=== PATIENT | female | born 1965 | race Caucasian/White ===

== ENCOUNTER → 2020-07-11 13:27 | Outpatient (BNVA) | payer OTHER, SELFPAY | PROVIDERS: PCP Internal Medicine; Referring Provider Internal Medicine; Visit Provider Surgery | DX: Z09 Encounter for follow-up examination after completed treatment for conditions other than malignant neoplasm (principal); Z87.2 Personal history of diseases of the skin and subcutaneous tissue | CPT/HCPCS: 99212; 99213 ==

== ENCOUNTER 2020-11-12 12:45 | Emergency (ER) | payer OTHER, SELFPAY ==
[2020-11-12 13:49] VITALS: BP 143/83; PULSE 75; RESP 16; TEMP 37.1; O2SAT 99; BMI 23.9
--- NOTE | 2020-11-12 14:22 | ED_ITS ---
HPI - Eye Problem General Chief complaint: Eye Problems Stated complaint: eyelid issue Time Seen by Provider: 11/12/20 13:52 Source: patient Mode of arrival: ambulatory Limitations: no limitations History of Present Illness HPI Narrative: 55-year-old female presenting to the ED with swelling to her left upper eyelid that started over the past 3 days worse today. Reports that she was seen at an urgent care clinic on Friday and given doxycycline and she felt like the area was less swollen than she went home and took the doxycycline as prescribed and applied warm compresses and woke up today with worsening swe lling. Reports she has not followed up with an cotton chopper although was given a referral. Denies any other symptom complaints or concerns at this time. chief complaint: other (Left upper eyelid swelling) Onset (ago): day(s) (3 days worse today) Onset description: gradual Duration: constant Location: left eye Eye Symptoms: other (Irritating/pressure sensation) Place: home Mechanism: none Severity: mild If Pain, Quality: aching Associated symptoms: none Treatments Prior to Arrival: other (Doxycycline and warm compresses see above) Related Data Home Medications Medication Instructions Recorded Confirmed diazepam 5 mg tablet 5 mg PO BID 07/11/20 fluticasone propionate 50 2 spray INTRANASAL DAILY 07/11/20 mcg/actuation nasal spray,suspension gabapentin 600 mg tablet 600 mg PO TID 07/11/20 ipratropium bromide 17 2 puff INHALATION QID 07/11/20 mcg/actuation HFA aerosol inhaler simvastatin 40 mg tablet 40 mg PO BEDTIME 07/11/20 Previous Rx's Medication Instructions Recorded doxycycline hyclate 100 mg tablet 100 mg PO BID #14 tab 11/10/20 erythromycin 1 appl OPHTHALMIC-LEFT DAILY #3.5 g 11/12/20 Allergies Allergy/AdvReac Type Severity Reaction Status Date / Time No Known Allergies Allergy Mild N/A Unverified 11/10/20 16:52 Review of Systems Review of Systems: Constitutional : No fevers, no chills, No changes in activity, No lethargy, No recent prior head injury, No agitation, No increased fussiness ENT/Mouth : No Ear Pain, No Nasal discharge/drainage Eyes: + eyelid left swelling, No Vision changes/blurry/decreased vision, No Eye Pain, No Swelling, No Redness, No Foreign Body, No Photophobia, no discharge, no drainage, no itching, no eyelid edema, no contact lens uses, no recent welding, no bleeding Cardiovascular : No Chest Pain, No SOB Respiratory : No Cough Gastrointestinal : No Nausea, No Vomiting, No abdominal Pain Genitourinary : No Dysuria, No Urinary Frequency, No Urinary Incontinence, No Urgency, No Flank Pain Musculoskeletal : No joint pain, No neck stiffness, No back pain/injury Skin : No lacerations Neuro : No unsteady gait, No Paresthesias, No Loss of Consciousness, No altered mental status, No dizziness, No Headache Denies past medical history of HIV, recent trauma, coagulopathy, recent spinal/ epidural procedure, new medication, URI symptoms, close contacts with similar symptoms, tick bite, or known CO2 exposure. Yes all other systems are reviewed and are negative [facility] Past Medical History Attestation statement: The following information was validated with the patient. Medical History History of cardiac pacemaker Social History Social History Smoking Status: Current every day smoker Use of substances other than those prescribed or required for medical reasons: Yes Substance Use Type: Marijuana Substance Use Frequency: Daily Advance Directives: No Advance Directives Information Provided: Yes Physical Exam Vital Signs: Vital Signs: Last Vital Signs Temp 98.8 F 11/12/20 13:49 Pulse 75 11/12/20 13:49 Resp 16 11/12/20 13:49 BP 143/83 H 11/12/20 13:49 Pulse Ox 99 11/12/20 13:49 Body Mass Index 23.9 vital signs have been reviewed as normal and appeared to be correct. Blood pressure normal. Heart rate normal. Respiration rate normal. Temperature normal. Oxygen saturation normal. Appearance: Alert. Oriented X3. No acute distress. Head: Normal external exam. Normocephalic. Atraumatic. Eyes: PERRLA. EOMI. Conjunctiva are normal. Cornea are normal. Funduscopic exam within normal limits. Sclera normal. Left upper eyelid with hordeolum noted no surrounding erythema/streaking/foreign bodies or drainage noted at this time. Left lower eyelid within normal limits. Right upper and lower eyelids within normal limits. No papilledema noted. Anterior chamber normal. No photophobia noted. ENT: EAC normal. TM's Normal. Pharynx normal. Uvula midline. Moist mucous membranes. Neck: Normal inspection. Neck supple. FROM. No adenopathy. Thyroid Normal. No meningeal signs. No neck mass noted. CVS: Normal heart rate and rhythm. Respiratory: No respiratory distress. Painless inspiration. Back: Full range of motion noted. Skin: Skin warm and dry. Normal skin color. Normal skin turgor. No rashes/lesions/lacerations noted. Extremities: Extremities exhibit normal range of motion. Extremities nontender. Neuro: Oriented X 3. No motor deficit. No sensory deficit. Reflexes normal. Course Course Course Narrative: Patient is now status post needle aspiration of left eye. Patient tolerated procedure well. No complications. Will DC home with antibiotics erythromycin topical and instructions to continue taking her doxycycline as prescribed and to follow up with Ophthalmology as scheduled. Patient understands agrees with this plan. MDM - Eye Problem Medical Records Attestation: I reviewed the patient's medical records. Discharge Plan Discharge Clinical Impression: Hordeolum externum (stye) Patient Disposition: Home, Self-Care Instructions: Gregory (ED) Prescriptions: New erythromycin 5 mg/gram (0.5 %) ointment 1 appl ophthalmic-Left DAILY Qty: 3.5 RF: 0 No Action doxycycline hyclate 100 mg tablet 100 mg PO BID Qty: 14 RF: 0 diazepam 5 mg tablet 5 mg PO BID RF: 0 simvastatin 40 mg tablet 40 mg PO BEDTIME RF: 0 gabapentin 600 mg tablet 600 mg PO TID RF: 0 fluticasone propionate 50 mcg/actuation spray,suspension 2 spray intranasal DAILY RF: 0 Atrovent HFA 17 mcg/actuation HFA aerosol inhaler 2 puff inhalation QID RF: 0 Referrals: Federico Barragan [Physician] - 2 days Print Language: Turkish
== END 2020-11-12 14:49 | disposition home or self-care (01) ==
PROVIDERS: Emergency Provider Emergency Medicine Emergency Medical Services; PCP Internal Medicine
DX: H00.014 Hordeolum externum left upper eyelid (principal); H57.12 Ocular pain, left eye; F12.90 Cannabis use, unspecified, uncomplicated; Z79.899 Other long term (current) drug therapy
CPT/HCPCS: 99283

== ENCOUNTER 2021-01-15 13:34 | Emergency (ER) | payer OTHER, SELFPAY ==
[2021-01-15 13:42] VITALS: BP 137/84; PULSE 97; RESP 17; O2SAT 98; BMI 23.1
[2021-01-15] MEDS: Ketorolac Tromethamine 30 MG/ML VIAL IM (14:51)
--- NOTE | 2021-01-15 14:59 | ED_ITS ---
HPI - Back Pain/Injury General Chief Complaint: Back Pain/Injury Stated Complaint: spondylosis Time Seen by Provider: 01/15/21 14:34 Source: patient Mode of arrival: ambulatory Limitations: no limitations History of Present Illness HPI Narrative: Patient presents to ED for chronic back pain exacerbation. Patient states he has used spondylosis. Patient states history of many injuries to back. Patient states he skinned cortisone injections to spine, and is due for next week. Patient denies any urinary/bowel incontinence. Patient denies any paralysis of lower extremities. Patient denies any dysuria, hematuria, flank pain, fever, chills, or abdominal pain. Related Data Home Medications Medication Instructions Recorded Confirmed diazepam 5 mg tablet 5 mg PO BID 07/11/20 fluticasone propionate 50 2 spray INTRANASAL DAILY 07/11/20 mcg/actuation nasal spray,suspension gabapentin 600 mg tablet 600 mg PO TID 07/11/20 ipratropium bromide 17 2 puff INHALATION QID 07/11/20 mcg/actuation HFA aerosol inhaler simvastatin 40 mg tablet 40 mg PO BEDTIME 07/11/20 Previous Rx's Medication Instructions Recorded doxycycline hyclate 100 mg tablet 100 mg PO BID #14 tab 11/10/20 erythromycin 1 appl OPHTHALMIC-LEFT DAILY #3.5 g 11/12/20 ketorolac 10 mg PO Q6H PRN 5 Days #20 tab 01/15/21 Allergies Allergy/AdvReac Type Severity Reaction Status Date / Time No Known Allergies Allergy Mild N/A Verified 01/15/21 14:56 Review of Systems Review of Systems: Yes all other systems are reviewed and are negative Constitutional: Constitutional: Reports as per HPI and Reports no additional constitutional complaints Eyes: Eyes: Reports as per HPI and Reports no additional eye complaints ENT: Reports system reviewed and no additional complaints, except as documented and Reports as per HPI Cardiovascular: Cardiovascular: Reports as per HPI and Reports no additional cardiovascular complaints Respiratory: Respiratory: Reports as per HPI and Reports no additional respiratory complaints Gastrointestinal: Gastrointestinal: Reports as per HPI and Reports no additional gastrointestinal complaints Genitourinary: Genitourinary: Reports no additional female genitourinary complaints and Reports as per HPI Musculoskeletal: Musculoskeletal: Reports no additional musculoskeletal complaints, Reports as per HPI and Reports back pain Neurologic: Reports system reviewed and no additional complaints, except as documented and Reports as per HPI Psychiatric: Psychiatric: Reports no additional psychiatric complaints and Reports as per HPI Endocrine: Endocrine: Reports no additional endocrine complaints and Reports as per HPI [facility] Past Medical History Medical History (Updated 01/15/21 @ 15:02 by MARTHA Santizo) Back pain History of cardiac pacemaker Mood disorder Pacemaker Restless leg syndrome Social History Social History Smoking Status: Current every day smoker Substance Use Type: Marijuana Advance Directives: No Advance Directives Information Provided: Yes Physical Exam Vital Signs: Vital Signs: Last Vital Signs Pulse 97 01/15/21 13:42 Resp 17 01/15/21 13:42 BP 137/84 01/15/21 13:42 Pulse Ox 98 01/15/21 13:42 Body Mass Index 23.1 Const: General: cooperative, healthy appearing, comfortable, no acute distress, well developed, alert, awake and Physically active Orientation/consciousness: patient oriented x3 HENMT: Head: Yes normal to inspection, Yes No palpable skull fracture present, Yes normocephalic and Yes atraumatic Eyes: General: appearance normal, both eyes and all related structures Neck: Neck: Yes normal visual inspection and Yes full ROM Chest: Chest palpation & inspection: normal inspection of the chest and normal palpation of entire chest wall Resp: Effort & Inspection: normal respiratory effort and able to speak in complete sentences Auscultation: clear to auscultation bilaterally Cardio: Jugular venous distension: no JVD Heart sounds: S1 normal heart sound present and S2 normal heart sound present GI: Inspection: Yes normal to inspection and No abdominal wall ecchymosis Palpation (GI): Soft to palpation, not firm, nontender, no guarding and not rigid : General: No CVA tenderness and Yes no CVA tenderness Back/Spine/Pelvis: Back: no CVA tenderness, No CVA tenderness and back tenderness (Lumbar spine tenderness. patient states this is chronic.) Skin: General skin exam: no rashes or lesions noted and elasticity normal Neuro: General: patient oriented x3 and CN's II-XI intact bilaterally Cranial nerves: Yes CN's II-XII intact bilaterally Extrem: General: Yes normal to inspection and Yes full ROM Psych: Appearance: grossly normal, well kempt and not disheveled Course Course Course Narrative: Patient given Toradol injection for chronic back pain. No new imaging indicated. History does not indicate cord compression. Reevaluation(s) Reevaluation #1: Pain relief for Toradol. Patient will be discharged with prescription of Toradol. Discharge Plan Discharge Clinical Impression: Lumbar radiculopathy Patient Disposition: Home, Self-Care Instructions: Lumbar Radiculopathy (ED), Chronic Back Pain (DC) Additional Instructions: Return to the ED immediately for urinary/bowel incontinence, flank pain, fever, chills, dysuria, hematuria, abdominal pain, paralysis of lower extremities, tingling of lower extremities, weakness, or any other concerning symptoms. Please follow-up with PCP Prescriptions: New ketorolac 10 mg tablet 10 mg PO Q6H PRN (Reason: pain) 5 Days Qty: 20 RF: 0 No Action erythromycin 5 mg/gram (0.5 %) ointment 1 appl ophthalmic-Left DAILY Qty: 3.5 RF: 0 doxycycline hyclate 100 mg tablet 100 mg PO BID Qty: 14 RF: 0 diazepam 5 mg tablet 5 mg PO BID RF: 0 simvastatin 40 mg tablet 40 mg PO BEDTIME RF: 0 gabapentin 600 mg tablet 600 mg PO TID RF: 0 fluticasone propionate 50 mcg/actuation spray,suspension 2 spray intranasal DAILY RF: 0 Atrovent HFA 17 mcg/actuation HFA aerosol inhaler 2 puff inhalation QID RF: 0 Interventions: ED Discharge Assessment Last Done: 01/15/21 15:27 Discharge Date/Time: 01/15/21 15:28 Print Language: Azeri
== END 2021-01-15 15:28 | disposition home or self-care (01) ==
PROVIDERS: Emergency Provider Emergency Medicine; PCP Internal Medicine
DX: M54.16 Radiculopathy, lumbar region (principal); F17.200 Nicotine dependence, unspecified, uncomplicated; F12.90 Cannabis use, unspecified, uncomplicated; Z71.6 Tobacco abuse counseling; Z79.899 Other long term (current) drug therapy
CPT/HCPCS: 96372; 99284; J1885

== ENCOUNTER → 2021-03-29 13:59 | Outpatient (BNVA) | payer OTHER, SELFPAY | PROVIDERS: PCP Internal Medicine; Visit Provider Surgery | DX: L02.91 Cutaneous abscess, unspecified (principal) | CPT/HCPCS: 99202 ==

== ENCOUNTER 2021-06-11 09:37 | Emergency (ER) | payer OTHER, SELFPAY | END 2021-06-11 11:53 | disposition left against medical advice (07) | PROVIDERS: Emergency Provider Emergency Medicine; PCP Internal Medicine | DX: M79.2 Neuralgia and neuritis, unspecified (principal) ==

== ENCOUNTER 2021-08-20 12:00 | Emergency (ER) | payer MEDICARE, MEDICAID, SELFPAY ==
[2021-08-20 13:14] VITALS: BP 133/71; PULSE 61; RESP 18; TEMP 37; O2SAT 99; BMI 25.6
--- NOTE | 2021-08-20 14:42 | ED_ITS ---
HPI - Skin/Abscess/Foreign Bdy General Chief complaint: Skin/Abscess/Foreign Body Stated complaint: Cyst Source: patient Mode of arrival: ambulatory Limitations: no limitations History of Present Illness HPI narrative: 56-year-old female presents to the ED for painful lump in her right buttock has been present for a while now is more painful and now a red. Patient denies any anal pain, rectal bleeding, or lump on anus. Patient denies any fever or chills. Patient denies shaving in the area. Related Data Home Medications Medication Instructions Recorded Confirmed diazepam 5 mg tablet 5 mg PO BID 07/11/20 03/29/21 fluticasone propionate 50 2 spray INTRANASAL DAILY 07/11/20 03/29/21 mcg/actuation nasal spray,suspension gabapentin 600 mg tablet 600 mg PO TID 07/11/20 03/29/21 ipratropium bromide 17 2 puff INHALATION QID 07/11/20 03/29/21 mcg/actuation HFA aerosol inhaler simvastatin 40 mg tablet 40 mg PO BEDTIME 07/11/20 03/29/21 Previous Rx's Medication Instructions Recorded doxycycline hyclate 100 mg tablet 100 mg PO BID #14 tab 11/10/20 erythromycin 5 mg/gram (0.5 %) eye 1 appl OPHTHALMIC-LEFT DAILY #3.5 g 11/12/20 ointment ketorolac 10 mg tablet 10 mg PO Q6H PRN 5 Days #20 tab 01/15/21 gabapentin 600 mg tablet 600 mg PO TID #30 tab 06/11/21 cephalexin 500 mg capsule 500 mg PO QID 7 Days #28 cap 08/20/21 doxycycline hyclate 100 mg capsule 100 mg PO BID 7 Days #14 cap 08/20/21 naproxen 500 mg tablet 500 mg PO BID PRN 10 Days #20 tab 08/20/21 Allergies Allergy/AdvReac Type Severity Reaction Status Date / Time No Known Allergies Allergy Mild N/A Verified 06/11/21 11:00 Review of Systems Review of Systems: Yes all other systems are reviewed and are negative Constitutional: Constitutional: Reports as per HPI and Reports no additional constitutional complaints Eyes: Eyes: Reports as per HPI and Reports no additional eye complaints ENT: Reports system reviewed and no additional complaints, except as docu mented and Reports as per HPI Cardiovascular: Cardiovascular: Reports as per HPI and Reports no additional cardiovascular complaints Respiratory: Respiratory: Reports as per HPI and Reports no additional respiratory complaints Gastrointestinal: Gastrointestinal: Reports as per HPI and Reports no additional gastrointestinal complaints Genitourinary: Genitourinary: Reports no additional female genitourinary complaints and Reports as per HPI Musculoskeletal: Musculoskeletal: Reports no additional musculoskeletal complaints and Reports as per HPI Integumentary/Breasts: Skin/Breast: Reports system reviewed and no additional complaints, except as docu and Reports as per HPI Comments: Right buttock cheek/boil Psychiatric: Psychiatric: Reports no additional psychiatric complaints and Reports as per HPI Endocrine: Endocrine: Reports no additional endocrine complaints and Reports as per HPI [facility] Past Medical History Medical History (Updated 08/20/21 @ 14:52 by MARTHA Santizo) Back pain History of cardiac pacemaker Mood disorder Pacemaker Restless leg syndrome Family History Family History (Updated 03/29/21 @ 14:15 by TEN Salinas) Mother Cancer of unknown origin Social History Social History (Updated 03/29/21 @ 14:15 by TEN Salinas) Alcohol intake: never Substance Use Type: Marijuana Advance Directives: No Advance Directives Information Provided: No Patient : No Physical Exam Vital Signs: Vital Signs: Last Vital Signs Temp 98.6 F 08/20/21 13:14 Pulse 61 08/20/21 13:14 Resp 18 08/20/21 13:14 BP 133/71 08/20/21 13:14 Pulse Ox 99 08/20/21 13:14 Body Mass Index 25.6 Const: General: cooperative, healthy appearing, comfortable, no acute distress, well developed, alert, awake and Physically active HENMT: Head: Yes normal to inspection, Yes No palpable skull fracture present, Yes normocephalic, Yes atraumatic and No abrasion Eyes: General: appearance normal, both eyes and all related structures Neck: Neck: Yes normal visual inspection, Yes full ROM, Yes no lymphadenopathy, Yes no meningeal signs, Yes trachea midline, Yes supple, No anterior neck swelling and No tender Chest: Chest palpation & inspection: normal inspection of the chest and normal palpation of entire chest wall Resp: Effort & Inspection: normal respiratory effort and able to speak in complete sentences Auscultation: clear to auscultation bilaterally Cardio: Jugular venous distension: no JVD Heart sounds: S1 normal heart sound present and S2 normal heart sound present GI: Inspection: Yes normal to inspection and No abdominal wall ecchymosis Palpation (GI): Soft to palpation, not firm, nontender, no guarding and not rigid : General: No CVA tenderness and Yes no CVA tenderness Back/Spine/Pelvis: Back: no CVA tenderness, No CVA tenderness and No back tenderness Skin: Full body images: 1. Positive for small erythematous tender boil like mass on outer crease of the buttocks. Negative for any tracking or fluctuance going towards the rectum or anus. Negative for any anal/rectal abscess. Negative for any foul odor or active pus drainage. Bedside ultrasound negative for any collection. Neuro: General: gait normal, no meningeal signs and CN's II-XI intact bilaterally Cranial nerves: Yes CN's II-XII intact bilaterally Extrem: General: Yes normal to inspection and Yes full ROM Psych: Appearance: grossly normal, well kempt and not disheveled Course Course Course Narrative: Molar/cellulitis. Reevaluation(s) Reevaluation #1: Presently no indication for incision and drainage. Not fluc tuant. Will discharge with antibiotics recommend warm compress on the area. Time: 14:51 MDM - Skin/Abscess/Foreign Bdy MDM Narrative Medical decision making narrative: Cellulitis/boil Discharge Plan Discharge Clinical Impression: Cellulitis, Boil of buttock Patient Disposition: Home, Self-Care Instructions: Cellulitis (ED), Furunculosis and Carbunculosis (ED), Warm Compress or Soak (ED) Additional Instructions: History physical exam indicate more boil/cellulitis. Presently no indication for incision and drainage. Recommend warm compress on the area 4 times a day for 15 minutes. You will be discharged with antibiotics. Return to the ED immediately for increased in size, worsening redness, worsening pain, fever, chills, nausea, vomiting, or any other concerning symptoms. Please follow up with PCP. Prescriptions: New cephalexin 500 mg capsule 500 mg PO QID 7 Days Qty: 28 RF: 0 doxycycline hyclate 100 mg capsule 100 mg PO BID 7 Days Qty: 14 RF: 0 naproxen 500 mg tablet 500 mg PO BID PRN (Reason: pain) 10 Days Qty: 20 RF: 0 No Action erythromycin 5 mg/gram (0.5 %) ointment 1 appl ophthalmic-Left DAILY Qty: 3.5 RF: 0 ketorolac 10 mg tablet 10 mg PO Q6H PRN (Reason: pain) 5 Days Qty: 20 RF: 0 doxycycline hyclate 100 mg tablet 100 mg PO BID Qty: 14 RF: 0 gabapentin 600 mg tablet 600 mg PO TID Qty: 30 RF: 0 diazepam 5 mg tablet 5 mg PO BID RF: 0 simvastatin 40 mg tablet 40 mg PO BEDTIME RF: 0 gabapentin 600 mg tablet 600 mg PO TID RF: 0 fluticasone propionate 50 mcg/actuation spray,suspension 2 spray intranasal DAILY RF: 0 Atrovent HFA 17 mcg/actuation HFA aerosol inhaler 2 puff inhalation QID RF: 0 Stand Alone Forms: Work/School Release Interventions: ED Discharge Assessment Last Done: 08/20/21 14:58 Discharge Date/Time: 08/20/21 15:01 Print Language: [place] Citizen
== END 2021-08-20 15:01 | disposition home or self-care (01) ==
PROVIDERS: Emergency Provider Emergency Medicine; PCP Internal Medicine
DX: L02.32 Furuncle of buttock (principal); L03.317 Cellulitis of buttock
CPT/HCPCS: 99283

== ENCOUNTER 2021-08-28 11:22 | Emergency (ER) | payer MEDICARE, MEDICAID, SELFPAY ==
[2021-08-28 11:57] VITALS: BP 130/79; PULSE 87; RESP 18; TEMP 36.6; O2SAT 100; BMI 25.6
[2021-08-28] MEDS: oxyCODONE HCl Immed Release 5 MG TABLET PO (14:12)
[2021-08-28] MEDS: Ibuprofen 800 MG TABLET PO (14:12)
[2021-08-28] MEDS: Silver Sulfadiazine 1 % Cream 20 GM TUBE 1 APPL TOPICAL (14:14)
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
[2021-08-28] MEDS: Diphth,Pertus(ACell),Tet Adult 0.5 ML SYRINGE IM (14:32)
== END 2021-08-28 15:11 | disposition home or self-care (01) ==
PROVIDERS: Emergency Provider Emergency Medicine; PCP Internal Medicine
DX: T21.21XA Burn of second degree of chest wall, initial encounter (principal); T22.151A Burn of first degree of right shoulder, initial encounter; T20.17XA Burn of first degree of neck, initial encounter; T21.13XA Burn of first degree of upper back, initial encounter; T31.11 Burns involving 10-19% of body surface with 10-19% third degree burns; X10.2XXA Contact with fats and cooking oils, initial encounter; Y93.G3 Activity, cooking and baking; Y92.030 Kitchen in apartment as the place of occurrence of the external cause; Y99.9 Unspecified external cause status
CPT/HCPCS: 16000; 90471; 90715; 99284

== ENCOUNTER 2021-08-30 10:32 | Outpatient (RCR) | payer OTHER, SELFPAY | END 2021-10-31 15:09 | disposition home or self-care (01) | LOC: HO.WCC 10:32 | PROVIDERS: PCP Internal Medicine; Visit Provider Surgery | DX: T21.21XD Burn of second degree of chest wall, subsequent encounter (principal); T21.21XA Burn of second degree of chest wall, initial encounter; T21.23XA Burn of second degree of upper back, initial encounter; T22.251A Burn of second degree of right shoulder, initial encounter; T20.27XA Burn of second degree of neck, initial encounter; X10.2XXD Contact with fats and cooking oils, subsequent encounter; F17.210 Nicotine dependence, cigarettes, uncomplicated; F12.90 Cannabis use, unspecified, uncomplicated; Z79.2 Long term (current) use of antibiotics | CPT/HCPCS: 99213; 99215 ==

== ENCOUNTER 2022-08-01 10:47 | Outpatient (REF) | payer OTHER, SELFPAY ==
[2022-08-03 11:21] LABS: TS Negative Control Passed; TS Panel A 0; TS Panel B 1; TS Positive Control Passed; TSpotTB Negative (Negative)
== END 2022-08-01 10:48 | disposition home or self-care (01) ==
LOC: HO.HMGCLDS 10:47
PROVIDERS: Visit Provider Internal Medicine
DX: Z11.1 Encounter for screening for respiratory tuberculosis (principal)
CPT/HCPCS: 36415; 86481

== ENCOUNTER 2023-08-12 11:28 | Outpatient (AMB) | payer OTHER, SELFPAY ==
--- NOTE | 2023-08-12 11:31 | A.OFFVIS_ITS ---
Intake Vital Signs 08/12/23 11:41 Height 5 ft 2 in Weight 138 lb 4 oz BMI 25.3 BP 98/56 L Blood Pressure Location Lt brachial Position Sitting Pulse 58 Intake Visit Reasons: cyst on skin Intake Note: Patient is seen in office for evaluation of a cyst on the skin. Patient c/o: rt armpit cyst x3, onset one month, denies discharge, redness, admits to pain and discomfort L.OV: 03/29/21 Rt. 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 She reports a previous history of similar findings on the left side which were removed by Dr. Yanez. The current lesions have increased in size and are causing discomfort. She tried squeezing the lesion which broke the skin but did result in any discharge. She feels the cyst is now more irritated because of this. She is requesting excision of the 3 cyst located in the right axilla. She denies fever, chills, nausea or vomiting. [facility] Medical History Pacemaker Restless leg syndrome Mood disorder Back pain History of cardiac pacemaker Family History Mother Cancer of unknown origin Social History Alcohol intake: never Substance Use Type: Marijuana Review of Systems Const All systems reviewed & are unremarkable except as noted in HPI and below Physical Exam Const General: comfortable and no acute distress Nutritional Appearance: well nourished Orientation/consciousness: patient oriented x3 Limitations: no limitations Chest Other: Right axilla with a palpable epidermal inclusion cyst in the mid axillary line measuring approximately 1 cm in diameter. Smaller cyst slightly smaller is located just above this in the posterior axillary line. A 3rd cyst is located slightly medial to the initial cyst again approximately 0.5 cm in diameter. All are tender to palpation. There is no evidence of abscess or cellulitis. Resp Effort & Inspection: normal respiratory effort, no audible wheezes, no cough and no respiratory distress GI Inspection: Yes normal to inspection Skin General skin exam: no rashes or lesions noted Neuro General: patient oriented x3 Extrem General: Yes no clubbing, cyanosis or edema Assessment & Plan Assessment & Plan (1) Epidermal inclusion cyst: Code(s): L72.0 - Epidermal cyst Plan 58-year-old female patient presenting with several epidermal inclusion cyst involving the right axilla. These have become irritated and are now causing discomfort. I recommended an excision under local anesthesia as a minor surgery. After discussion of the procedure, risks and alternatives, she consents to excision of the right axillary sebaceous cyst x3. Medications: Discontinued ketorolac Patient received IM Toradol 30 mg during ER visit. Discontinued Reason: Patient Completed Course 10 mg PO Q6H 5 days PRN 20 tabs 0RF pain cephalexin Discontinued Reason: Patient Completed Course 500 mg PO QID 7 days 28 caps 0RF naproxen Discontinued Reason: Patient Completed Course 500 mg PO BID 10 days PRN 20 tabs 0RF pain oxycodone Discontinued Reason: Patient Completed Course 5 mg PO Q6H PRN 14 tabs 0RF pain doxycycline hyclate Discontinued Reason: Patient Completed Course 100 mg PO BID 7 days 14 caps 0RF gabapentin Discontinued Reason: Patient no longer taking 600 mg PO TID 30 tabs 0RF Coding Level of Care Code Est Pt Level 4 (56256) Diagnoses Epidermal inclusion cyst L72.0
[2023-08-12 11:41] VITALS: BP 98/56; PULSE 58; BMI 25.3
== END 2023-08-12 12:25 | disposition home or self-care (01) ==
PROVIDERS: PCP Internal Medicine; Visit Provider Surgery
DX: L72.0 Epidermal cyst (principal)
CPT/HCPCS: 99214

== ENCOUNTER → 2023-08-12 11:28 | Outpatient (BNVA) | payer OTHER, SELFPAY | PROVIDERS: PCP Internal Medicine; Visit Provider Surgery | DX: L72.0 Epidermal cyst (principal) | CPT/HCPCS: 99212 ==

== ENCOUNTER 2023-09-02 11:03 | Outpatient (REF) | payer OTHER, SELFPAY ==
[2023-09-02 11:11] VITALS: BMI 25.2
[2023-09-02 11:24] VITALS: BP 95/54; PULSE 72; RESP 16; TEMP 37.1; O2SAT 95; BMI 25.2
[2023-09-02 11:50] VITALS: BP 92/51; PULSE 72; RESP 16; O2SAT 95
--- NOTE | 2023-09-02 11:59 | W.PM.OPN ---
Operative Note Operative Note Date of Service: 09/02/23 Narrative: Preoperative diagnosis: right axillary cyst x3 Postoperative diagnosis: same Procedure: excision right axillary cyst x3 Surgeon: Jaciel Infante MD School Business Administrator: none Anesthesia: lidocaine 1% with epinephrine Indications for procedure: 58-year-old female patient presenting with 3 epidermal inclusion cyst in the right axilla which have cause discomfort and became infected. She presents now for excision to prevent further infections. Operative findings: Small epidermal inclusion cysts x3 each approximally 5 mm in diameter. Specimen: Epidermal inclusion cyst x3 right axilla Estimated blood loss: less than 2 mL Complications: none Procedure details: patient was brought to the minor surgery suite and placed in a supine position. A surgical time-out was called the consent confirmed. Patient confirmed the site of surgery in the right axilla. The patient was placed in the supine position with her right arm over her head. Skin was prepped with Betadine and draped in a sterile fashion. Local anesthesia was then infiltrated around the 3 cyst. Elliptical incision was then made around the upper cyst in carried out through subcutaneous tissue. Sharp dissection was used to excise the cyst completely. This was then sent to pathology for further examination. In a similar fashion the middle cyst and lower cyst were excised using the 15 blade scalp in elliptical fashion to excise the 2 remaining cyst. All 3 were sent to pathology for further examination. Light pressure was held to maintain hemostasis. Skin was then closed using interrupted 5 0 nylon sutures. Sterile dressings were then applied including a 2 x 2 gauze and small Tegaderm dressing. The patient tolerated the procedure well. She was discharged to home in stable condition.
== END 2023-09-02 11:04 | disposition home or self-care (01) ==
LOC: HO.MS 11:03
PROVIDERS: PCP Physician Assistant; Visit Provider Surgery
PROC: (CPT 11401; principal; 2023-09-02 11:00)
DX: L72.0 Epidermal cyst (principal)
CPT/HCPCS: 11401 ×2; 11402; 88304

== ENCOUNTER → 2023-09-02 11:03 | Outpatient (BNV) | payer OTHER, SELFPAY | PROVIDERS: PCP Physician Assistant; Visit Provider Surgery | DX: L72.0 Epidermal cyst (principal) | CPT/HCPCS: 11401; 11402 ==

== ENCOUNTER 2023-09-11 11:27 | Outpatient (AMB) | payer OTHER, SELFPAY ==
--- NOTE | 2023-09-11 11:33 | A.OFFVIS_ITS ---
Intake Vital Signs 09/11/23 11:45 Height 5 ft 2 in Weight 136 lb 8 oz BMI 25.0 BP 104/60 Blood Pressure Location Lt brachial Position Sitting Pulse 59 Intake Visit Reasons: S/P excision Rt axillary cyst x3 Intake Note: Patient is seen in office for post op assessment post excision of right axillary cyst x3. 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 Pathology confirmed inclusion cyst x3. She tolerated the procedure well and denies any ongoing symptoms. She returns today for wound check and suture removal. [facility] Medical History (Updated 08/12/23 @ 11:48 by Jaciel Infante MD) Pacemaker Restless leg syndrome Mood disorder Back pain History of cardiac pacemaker Surgical History (Updated 09/10/23 @ 09:48 by TEN Salinas) History of excision of mass (09/02/23) Family History Mother Cancer of unknown origin Social History Alcohol intake: never Substance Use Type: Marijuana Physical Exam Vital Signs: Last Vital Signs Pulse 59 09/11/23 11:45 BP 104/60 09/11/23 11:45 BMI result Body Mass Index 25.0 Const General: no acute distress Chest Other: Right axillary incisions are clean and intact without redness or discharge. Sutures removed and wounds found to be well healed. Skin Other: No erythema. Assessment & Plan Assessment & Plan (1) Epidermal inclusion cyst: Code(s): L72.0 - Epidermal cyst Plan 58-year-old female patient presenting with several epidermal inclusion cyst of the right axilla. She is status post excision approximately 1 week ago and tolerated the procedure well. She should follow up as needed. Coding Level of Care Code Global (38632) Diagnoses Epidermal inclusion cyst L72.0
[2023-09-11 11:45] VITALS: BP 104/60; PULSE 59; BMI 25.0
== END 2023-09-11 11:54 | disposition home or self-care (01) ==
PROVIDERS: PCP Internal Medicine; Visit Provider Surgery
DX: L72.0 Epidermal cyst (principal)
CPT/HCPCS: 99024

== ENCOUNTER → 2023-09-11 11:27 | Outpatient (BNVA) | payer OTHER, SELFPAY | PROVIDERS: PCP Internal Medicine; Visit Provider Surgery | DX: L72.0 Epidermal cyst (principal) | CPT/HCPCS: 99212 ==

== ENCOUNTER 2024-04-15 12:01 | Outpatient (AMB) | payer OTHER, SELFPAY ==
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
[2024-04-15 12:06] VITALS: BP 100/60; PULSE 79; TEMP 37.3; O2SAT 99; BMI 24.0
== END 2024-04-15 12:25 | disposition home or self-care (01) ==
PROVIDERS: PCP Physician Assistant; Visit Provider Registered Nurse
DX: T22.111A Burn of first degree of right forearm, initial encounter (principal)
CPT/HCPCS: 99213

== ENCOUNTER 2024-05-05 15:29 | Outpatient (AMB) | payer OTHER, SELFPAY ==
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
[2024-05-05 15:36] VITALS: BP 122/80; PULSE 73; TEMP 36.9; O2SAT 96; BMI 24.0
== END 2024-05-05 16:27 | disposition home or self-care (01) ==
PROVIDERS: PCP Physician Assistant; Visit Provider Registered Nurse
DX: M25.531 Pain in right wrist (principal)
CPT/HCPCS: 99214

== ENCOUNTER 2024-05-05 16:14 | Outpatient (REF) | payer OTHER, SELFPAY ==
--- NOTE | ~2024-05-05 | XR_ITS ---
EXAMINATION: XR WRIST, RIGHT CLINICAL INFORMATION: Pain COMPARISON: None available. TECHNIQUE: PA, lateral, and oblique views of the right wrist. FINDINGS: The bones and soft tissues are without any acute findings. Small sclerotic focus scaphoid distal pole most consistent with a bone island. Small cyst also suspected within the waist. No fracture. Alignment is anatomic with normal joint spaces. No erosions or abnormal soft tissue calcifications. XR/XR wrist RT min 3V IMPRESSION: No acute findings. Incidental bone island and small cyst as above.
== END 2024-05-05 16:15 | disposition home or self-care (01) ==
LOC: HO.HMGCX 16:14
PROVIDERS: PCP Physician Assistant; Visit Provider Registered Nurse
DX: M25.531 Pain in right wrist (principal)
CPT/HCPCS: 73110

== ENCOUNTER 2024-06-07 09:30 | Outpatient (RCR) | payer OTHER, SELFPAY ==
--- NOTE | 2024-05-24 12:06 | MHC.OT.EP ---
[address] [phone] Occupational Therapy Plan of Care Patient Name: Eleni Prather Date of Evaluation: 05/24/24 Diagnosis: Numbness/ tingling hand/ elbow R UE Pain Location: radial dorsal side of wrist pt describes pain as Achy Pain Score: 4 Pain Scale Used: Numeric (0 - 10) Aggravating Factors: heavy lifting; repetitive gripping Alleviating Factors: icing, aleeve, lidocaine spray Assessment: Frequency and Duration: The patient will be seen 2 xs a week for 4 weeks Short Term Goals: Pt will be compliant w/ her HEP Pt will be complaint w/ weaning from use of her brace pt will report 1/10 pain Chcf Goals: Pt will increase her R hand gas reverser to 20 lbs Pt will report RTW w/out modifications Pt will report RPLOF Treatment Plan: Therapeutic Exercise Therapeutic Activity Home Exercise Program Splinting Neuro Re-ed Patient Education Desensitization/Sensory Re-ed Edema Control ADL Training Ultrasound NMES Iontophoresis Paraffin Fluidotherapy MHP Cold Packs Joint Mobilization Soft Tissue Mobilization Kinesiotaping Other (see comments) Electronically Signed By: Sayra Church OTR/L Please Sign and return to therapist. Thank you once again for your referral.
== END 2024-06-08 10:57 | disposition home or self-care (01) ==
LOC: HO.OT 09:30
PROVIDERS: PCP Physician Assistant; Visit Provider Physician Assistant
DX: M25.531 Pain in right wrist (principal)
CPT/HCPCS: 97110; 97140; 97165; 97535

== ENCOUNTER 2025-09-16 11:47 | Outpatient (AMB) | payer OTHER, SELFPAY ==
[2025-09-16 11:52] VITALS: BMI 23.0
--- NOTE | 2025-09-16 11:52 | A.PHYSOV ---
Vital Signs 09/16/25 11:52 Height 5 ft 2 in Weight 126 lb BMI 23.0 Intake Visit Reasons: trigger points Intake Note: Patient is a 60 year old female here today for trigger point injections. Director It Project Required: No Allergies No Known Allergies Allergy (Mild, Verified 09/16/25 11:53) N/A [facility] Medical History (Updated 09/16/25 @ 12:14 by MARTHA Power) Pacemaker Restless leg syndrome Mood disorder Back pain History of cardiac pacemaker Surgical History History of excision of mass (09/02/23) Family History Mother Cancer of unknown origin Social History (Updated 09/16/25 @ 11:54 by Chery Malave MA) Alcohol intake: never Patient Tobacco Use Status: Current everyday Tobacco user Substance Use Type: Marijuana Physical Exam Vital Signs: BMI result Body Mass Index 23.0 Office Procedures AMB Trigger Point Inject - Phy Therapeutic Injection Details: Trigger point injection bilateral upper trapezius : Patient was educated about the risks, complications and benefits of trigger point injection. Risks and complications include infection, nerve damage, bleeding, collapsed lung. After discussing these risks complications and benefits the patient is eager to proceed. The patient's left upper trapezius muscle spasm was marked cleansed with an alcohol prep. 1 mL of 1% lidocaine was injected into the trigger point with needling. Patient tolerated the procedure well without immediate complication. The procedure was repeated on the right. [id number] Point Injection 1 or 2 sites All charges added?: Procedure code (CPT) selection complete Office Meds lidocaine (PF) 20 mg/mL (2 %) injection solution Performing Provider: MARTHA Power Performing Location: [facility] Administered by: MARTHA Power on 09/16/25 12:16 Dose Route Admin Location Dispensed Lot Number Expiration Date [facility] Fixed Capital Clerk 20 mg IM 5 mL [id number] [facility] Total Dispensed Waste 5 mL 80 % Assessment & Plan Assessment & Plan (1) Myalgia: Code(s): M79.10 - Myalgia, unspecified site Category: Medical Plan Ms. Prather is a 60-year-old female seen in evaluation today for myofascial pain. Today she consented to repeat trigger point injection bilateral upper trapezius area. She was given post-injection instructions, recommend: Moist heat compresses for 15 minutes 5 times daily. Recommend appropriate water intake. Patient will be seeing Dr. Caldera at meals for potential surgical intervention for her cervical radiculitis. C7-T1 KP was not helpful. Follow-up with our office as needed. Thank you for allowing me to participate in the care of your patient. Orders: Orders AMB Trigger Point Injection - Physiatry Today M79.10 - Myalgia, unspecified site Coding Level of Care Code Procedure Only Diagnoses Myalgia M79.10 CPT Codes Therapeutic Injection - Ther Injection 1: [id number] Point Injection 1 or 2 sites ([id number])
--- OUTSIDE RECORDS SUMMARY | 2025-09-16 13:54 | XMS_ITS | Clinical Summary ---
Author Organization [address] [facility] Address [address] [place] [address] Phone Care Team Providers Care Senior Devops Engineer Name Role Phone Michelle Cooper Primary Care Provider [phone] Allergies No known active allergies Medications atorvastatin (LIPITOR) 20 mg tablet Take 1 Tablet by mouth daily. Active clonazePAM (KlonoPIN) 1 mg tablet Take 1 Tablet by mouth 2 times daily as needed. Active lurasidone (LATUDA) 120 mg tablet Take 1 Tablet by mouth daily. Active lamoTRIgine (LaMICtal XR) 250 mg tablet extended release 24hr 24 hr tablet Take 1 tablet (250 mg total) by mouth 1 (one) time each day. Active lamoTRIgine (LaMICtal XR) 25 mg tablet extended release 24hr 24 hr tablet Take 1 tablet (25 mg total) by mouth 1 (one) time each day. Taking with 250 mg Active traZODone (DESYREL) 100 mg tablet Take 2 tablets (200 mg total) by mouth at bedtime. Active Active Problems Problem Noted Date Diagnosed Date Pacemaker end of life 11/02/2024 Dizziness 07/18/2023 Overview (08/30/2024): Last Assessment & Plan: The patient reports dizziness only with getting out of bed in the morning. She denies dizziness at any other time of the day. Her blood pressure is on the low side at 90/56 today, however she reports this is usual for her and she is not currently having any issues with dizziness. Given that her blood pressure is low at baseline, her dizziness may be orthostatic in origin; we discussed the need for improved hydration given that she drinks a lot of tea and milk and very little plain water. We discussed to increase plain water intake and that she may improve the taste if this is the issue by adding flavor drops, lemon juice, or a splash of other juice such as apple juice to water. She was encouraged to take care with position changes, especially in the payable processor hours, and we discussed falls prevention. She will return to care with any new or worsening symptoms. Sick sinus syndrome 07/18/2023 Syncope and collapse 11/02/2020 Bipolar disease, chronic 11/23/2019 Hidradenitis 10/11/2015 Overview (08/30/2024): Pubic/inguinal area. Se[place] by Dr. 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 Chronic obstructive pulmonary disease 08/25/2012 Encounters Date Type Department Care Team Description 07/14/2025 Telephone [facility] [address] [facility] [address] [place] [address] Abiel Brown MD from Last 3 Months Immunizations Immunization Administration Dates Next Due Influenza trivalent, 0.5mL, preservative free (Fluarix; FluLaval; Fluzone) ages 6mo and older (Afluria) 3 years and older 08/25/2012 Pneumococcal polysaccharide 23 valent (Pneumovax 23) 2yo and older 10/06/2014 Tdap Tetanus diptheria acell ular pertussis (Boostrix; Adacel) 7yo and older 03/25/2013 Surgical History Surgery Date Site/Laterality Comments PACEMAKER IMPLANT PROCEDURE: HISTORICAL PACEMAKER OTHER SURGICAL HISTORY 07/2011 PROCEDURE: HISTORY OTHER; COMMENT: battery replacement for pacemaker, [facility] History Medical History Date Comments Anxiety 12/27/2013 DX:Anxiety COPD (chronic obstructive pu lmonary disease) ([facility]/HCC V24, CMS/HCC V28) 08/25/2012 DX:COPD (chronic o bstructive pulmonary disease) ([facility]) Hyperlipidemia 08/25/2012 DX:Hyperlipidemi a Historical Medical DX 03/31/2014 DX:Ligia lala Family History Medical History Relation Name Comments Heart attack Father also grandparen ts Other: sudden Son Breast cancer Neg Hx not sure if mo m had breast CA but never had chemo or mastectomy Colon cancer Neg Hx Ovarian cancer Neg Hx Relation Name Status Comments Father Son Social History Tobacco Use Types Packs/Day Years Used Date Smoking Tobacco: Every Day Cigarettes Smokeless Tobacco: Never Alcohol Use Standard Drinks/Week Comments No 0 (1 standard drink = 0.6 oz pur e alcohol) Comments Unknown Sex and Gender Information Value Date Recorded Sex Assigned at Female 11/26/2024 10:42 AM EST Legal Sex Female 7:40 AM EST Gender Identity Female 11/26/2024 10:42 AM EST Sexual Orientation Straight 11/26/2024 10 :42 AM EST Last Filed Vital Signs Vital Sign Reading Time Taken Comments Blood Pressure 107/64 11/26/2024 1:00 PM EST Pulse 65 11/26/2024 1:00 PM EST Temperature 36.8 C (98.2 F) 11/26/2024 11:08 AM EST Respiratory Rate 18 11/26/2024 1:00 PM EST Oxygen Saturation 95% 11/26/2024 1:00 PM EST Inhaled Oxygen Concentration - - Weight 57.6 kg (127 lb) 11/26/2024 11:08 AM EST Height 157.5 cm (5' 2 ) 11/26/2024 11:08 AM EST Body Mass Index 23.23 11/26/2024 11:08 AM EST Plan of Treatment Upcoming Encounters Date Type Department Care Team (Late st Contact Info) Description 12/23/2025 3:00 PM EDT Office Visit [facility] [address] [facility] [address] [place] [phone] Abiel Brown MD [address] [place] [address] [address] [place] [phone] Health Maintenance Due Date Last Done Comments Drug Screen 1965 Non-Opioid Controlled Substance Agreement 1965 RSV Immunization Adult Patients (1 - Risk 50-74 years 1-dose series) 2015 Pneumococcal Vaccine: 50+ Years (2 of 2 - PCV) 10/06/2015 10/06/2014, 10/08/2010 Breast Cancer Screening 08/06/2019 08/06/2017 Cervical Cancer Screening: Pap Smear 01/16/2020 01/15/2017 Cholesterol Screening (Lipid Panel) 09/01/2022 01/21/2017 Colorectal Cancer Screening: Stool Based Tests (FOBT/FIT) 09/01/2022 HIV Screening 09/01/2022 Lung Cancer Screening (Low Dose CT) 09/01/2022 Medicare Annual Wellness Visit 09/01/2022 Social Influencers of Health Screening 09/01/2022 Depression Screening 09/29/2024 COVID-19 Vaccine ( season) 2025 08/08/2022, 12/13/2020, 11/23/2020 Influenza Vaccine (#1) 2025 3, 12/20/2021, 08/25/2012, Additional history exists Hypertension/CHF/CAD Annual BMP Blood Test 11/17/2025 11/17/2024, 10/13/2013 DTaP,Tdap,and Td Vaccines (3 - Td or Tdap) 08/28/2031 08/28/2021, 03/25/2013 Hepatitis C Screening Completed 12/21/2014 Zoster Vaccines Completed 02/09/2021, 11/08/2020 Colorectal Cancer Screening: Colonoscopy Discontinued 02/13/2021 HIB Vaccines Aged Out No longer eligi ble based on patient's age to complete this topic HPV Vaccines Aged Out No longer eligi ble based on patient's age to complete this topic Hepatitis A Vaccines Aged Out No long er eligible based on patient's age to complete this topic Hepatitis B Vaccines Aged Out No long er eligible based on patient's age to complete this topic IPV Vaccines Aged Out No longer eligi ble based on patient's age to complete this topic MMR Vaccines Aged Out No longer eligi ble based on patient's age to complete this topic Meningococcal ACWY Vaccine Aged Out N o longer eligible based on patient's age to complete this topic Meningococcal B Vaccine Aged Out No l onger eligible based on patient's age to complete this topic RSV Immunization Patients Under 20 months Aged Out No longer eligible based on patient's age to complete this topic Varicella Vaccines Aged Out No longer eligible based on patient's age to complete this topic Medical Devices Implanted Type Area Associate Civil Engineer Device Identifier Shelf Expiration Date Model / Serial / Lot Medt-Card Joy Xt Dr Fierro [id number] Implanted:05/2011 (Quantity not on file) Cardiac Pacemaker [employer] - CARDIAC RHYTH-CRDM JOY XT DR FIERRO / [id number] / Pacemaker Cardiac Joy Xt Dr Mri - [id number] - [id number] Implanted:Qty: 1 on 11/26/2024 by Chiara Wong MD at [facility] Cardiac Pacemaker N/A: Chest [employer] - CARDIAC RHYTH-CRDM [id number] 11/26/2025 [id number] / [id number] / Procedures Procedure Name Priority Date/Time Associated Diagnosis Comments BASIC METABOLIC PANEL Routine 11/17/2024 4:00 PM EST Encounter for pacemaker at end of battery life COLONOSCOPY Routine 02/13/2021 SCR MAMMO BI INCL CAD Routine 08/06/2017 3:08 PM EST Encounter for screening mammogram for malignant neoplasm of breast LIPID PANEL Routine 01/21/2017 PAP SMEAR Routine 01/15/2017 HEPATITIS C SCREENING Routine 12/21/2014 from Last 3 Months or Most Recently Relevant to Health Maintenance Results * (ABNORMAL) Basic metabolic panel (11/17/2024 4:00 PM EST) Sodium 132(L) 133 - 145 mmol/L LAB CHEMISTRY METHOD 11/17/2024 6:41 PM EST [facility] Potassium 4.3 3.5 - 5.5 mmol/L LAB CHEMISTRY METHOD 11/17/2024 6:41 PM EST [facility] Chloride 98 96 - 110 mmol/L LAB CHEMISTRY METHOD 11/17/2024 6:41 PM EST [facility] CO2 30 21 - 32 mmol/L LAB CHEMISTRY METHOD 11/17/2024 6:41 PM EST [facility] Anion Gap 4 3 - 11 LAB CHEMISTRY METHOD 11/17/2024 6:41 PM EST [facility] Glucose 84 70 - 100 mg/dL LAB CHEMISTRY METHOD 11/17/2024 6:41 PM EST [facility] BUN 12 5 - 25 mg/dL LAB CHEMISTRY METHOD 11/17/2024 6:41 PM EST [facility] Creatinine 0.99 0.50 - 1.10 mg/dL LAB CHEMISTRY METHOD 11/17/2024 6:41 PM EST [facility] eGFR 66 >=60 mL/min/1. 73m2 LAB CHEMISTRY METHOD 11/17/2024 6:41 PM EST [facility] Comment:Calculation based on the Chronic Kidney Disease Epidemiology Collaboration (CKD-EPI) equation refit without adjustment for race. BUN/Creatinine Ratio 12.1 LAB CHEMISTRY METHOD 11/17/2024 6:41 PM EST [facility] Calcium 9.3 8.5 - 10.5 mg/dL LAB CHEMISTRY METHOD 11/17/2024 6:41 PM EST [facility] Blood Venous blood specimen / Unknown Venipuncture / Unknown 11/17/2024 4:00 PM EST 11/17/2024 4:00 PM EST Chiara Wong MD LAB BLOOD ORDERABLES Final Result [facility] [address] [place] [address], * Colonoscopy (02/13/2021) Colonoscopy no interpretation , abstracted Anatomical Region Laterality Modality Other Historical Provider HEALTH MAINTENANCE Final Result * SCR MAMMO BI INCL CAD (08/06/2017 3:08 PM EST) Anatomical Region Laterality Modality Radiographic Juli ging 01/06/2017 5:28 PM EDT Narrative 08/07/2017 12:07 PM EST This is a summary report. The complete report is available in the patient's medical record. If you cannot access the medical record, please contact the sending organization for a detailed fax or copy. Full field digital screening mammography, reviewed with CAD and compared to previous. The breast tissue is heterogeneously dense, limiting sensitivity. No suspicious mass, architectural distortion or suspicious calcifications are identified. IMPRESSION: : Dense breast tissue, limiting the sensitivity of mammography. No mammographic evidence of malignancy. BIRADS 1-Negative; N. 5 year breast cancer risk assessment 0.9 % Lifetime breast cancer risk assessment 7.1 % Breast cancer risk category Low (<15%) Procedure Note Yuridia Hi MD - 10/31/2023 This is a summary report. The complete report is available in thepatient's medical record. If you cannot access the medical record, pleasecontact the sending organization for a detailed fax or copy. Full field digital screening mammography, reviewed with CAD and comparedto previous. The breast tissue is heterogeneously dense, limitingsensitivity. No suspicious mass, architectural distortion or suspiciouscalcifications are identified. IMPRESSION: : Dense breast tissue, limiting the sensitivity of mammography. Nomammographic evidence of malignancy. BIRADS 1-Negative; N. 5 year breast cancer risk assessment 0.9 % Lifetime breast cancer risk assessment 7.1 % Breast cancer risk category Low (<15%) Jayde Quiroz MD IMG XR PROCEDURES Final Resu lt * Lipid panel (01/21/2017) [facility] LDL/HDL Ratio 3 0 - 4 Triglycerides 120 0 - 150 mg/dL Cholesterol 188 0 - 200 mg/dL HDL 65 >=40 mg/dL LDL Cholesterol 99 0 - 100 mg/dL Blood Venous blood specimen / Unknown Result [facility] Provider LAB BLOOD ORDERABLES Dina l Result * Pap Smear (01/15/2017) Pathologist [facility] Pap smear normal, abstracted Result [facility] Provider HEALTH MAINTENANCE Final Result * Hepatitis C Screening (12/21/2014) [facility] Hepatitis C Screening abstracted Result [facility] Provider HEALTH MAINTENANCE Final Result from Last 3 Months or Most Recently Relevant to Health Maintenance Insurance [employer] MEDICARE Member Subscriber Plan / Payer (Ef fective 2021-Present) Name:Eleni Prather Relation to Subscriber:Self Name:Eleni Prather Payer ID:[id number] Group ID:[id number] Type:Not on file Address: [place] [address] [address] [id number] Care Teams Senior Devops Engineer Relationship Specialty Start Date End Date Michelle Cooper PA [address] [place] [address] PCP - General 11/02/24
--- OUTSIDE RECORDS SUMMARY | 2025-09-16 13:54 | XMS_ITS | Clinical Summary ---
Author Organization [facility] Address [address] [facility] [address] [place] [id number] Phone Care Team Providers Care Furniture Removalist Name Role Phone Jayde Quiroz MD Primary Care Provide r Social History Tobacco Use Types Packs/Day Years Used Date Smoking Tobacco: Never Assessed Education Answer Date Recorded Are you interested in more education? Not on nhi e 02/06/2023 Are you concerned about learning? Not on file 02/06/2023 No 02/06/2023 No 02/06/2023 Digital Access Answer Date Recorded No 02/23/2023 No 02/23/2023 No 02/23/2023 Reliable internet access at home? Not on file 02/23/2023 Device with a working camera? Not on file Comments Unknown Sex and Gender Information Value Date Recorded Sex Assigned at Not on file Legal Sex Female 6:52 PM EST Gender Identity Not on file Sexual Orientation Not on file Plan of Treatment Health Maintenance Due Date Last Done Comments LIPID PANEL 1965 DEPRESSION SCREENING 1977 SMOKING Hx and SMOKELESS TOB ACCO SCREENING 1978 HEPATITIS C SCREENING 1983 HIV ONE-TIME SCREENING (18-6 5 YEARS) 1983 MAMMOGRAM 2005 COLOGUARD 2010 COLONOSCOPY 2010 COLORECTAL CANCER SCREENING 2010 FIT TEST 2010 FOBT 2010 SIGMOIDOSCOPY 2010 VIRTUAL COLONOSCOPY 2010 PNEUMOCOCCAL VACCINES (50+ y ears) (2 of 2 - PCV) 10/06/2015 10/06/2014 ZOSTER VACCINES (2 of 2) 01/03/2021 11/08/2020 Adult Td,Tdap Booster 03/25/2023 03/25/2013 INFLUENZA VACCINE (#1) 2025 08/25/2012 COVID-19 VACCINE (2 - 2024-2 6 season) 2025 12/13/2020 PAP SMEAR 08/13/2025 08/13/2022 RSV VACCINE (1 - 1-dose 75+ series) 2040 HEPATITIS A VACCINES Aged Out No long er eligible based on patient's age to complete this topic HIB VACCINES Aged Out No longer eligi ble based on patient's age to complete this topic MENINGOCOCCAL VACCINES (ACWY) Aged Out No longer eligible based on patient's age to complete this topic MENINGOCOCCAL VACCINES (B) Aged Out N o longer eligible based on patient's age to complete this topic Medical Devices Not on file Procedures Procedure Name Priority Date/Time Associated Diagnosis Comments PAP TEST Routine 08/13/2022 12:00 AM EST from Last 3 Months or Most Recently Relevant to Health Maintenance Results * Pap Smear (08/13/2022 12:00 AM EST) 08/13/2022 08/14/2022 9:2 7 AM EST Narrative SEE NARRATIVE - 08/19/2022 4:45 PM EST [address] [address] Family Support Coordinator: Tracey Rebollar MD COLLECTIONS MANAGER Cytology Report FINAL DIAGNOSIS A. PAP SMEAR (SUREPATH) CE: SPECIMEN ADEQUACY: Satisfactory for evaluation; transformation zone present. INTERPRETATION: NEGATIVE FOR INTRAEPITHELIAL LESION OR MALIGNANCY. Reactive changes. Electronically Signed Out By: MD Anny Askew CT(ASCP) By his/her signature above, the pathologist listed as making the Final Diagnosis certifies that he/she has personally reviewed this case and confirmed or corrected the diagnosis. The Pap test is a screening test primarily for squamous cancers and precursors and has associated false-negative and false-positive results. New technologies such as liquid-based preparations may decrease but will not eliminate all false-negative results. Regular sampling and follow-up of unexplained clinical signs and symptoms are recommended to minimize false negative results. PROCEDURES/ADDENDA HPV Testing (Requested) Ordered Date: 08/14/2022 A. PAP SMEAR (SUREPATH) CE: Human Papilloma Virus Test Negative for high-risk human papillomavirus types 16, 18, 45 and the Other high risk probe set (Includes 31, 33, 35, 39, 51, 52, 56, 58, 59, 66, 68) by [employer] Onclarity HR-HPV analysis. Clinical correlation is advised. This HPV test was performed at [facility], [address] [place] [address]. This test has been FDA approved for SurePath cervical cytology specimens. The accuracy and precision of this test for all other specimen sources has been verified in the Cytopathology Laboratory of the [facility] and has not been cleared or approved by the U.S. Food and Drug Administration. Clinical correlation is advised. CLINICAL HISTORY Date of Last Menstrual Period: Not Provided Menstrual History: Post Menopausal Other Clinical Conditions: Screening Pap SPECIMEN SOURCE A: PAP SMEAR (SUREPATH) CE Patient Name: ELENI PRATHER : 1965 (Age: 57) Sex: F Institution: [facility] Location: [facility] Date of Collection: 08/13/2022 Date of Reported: 08/19/2022 16:45 Results to: Michelle Dunn PA-C us Michelle THOMAS CYTOLOGY ORDERABLES Final Resu lt SEE NARRATIVE from Last 3 Months or Most Recently Relevant to Health Maintenance Insurance [facility] ONE CARE MEDICARE REPLACEMENT [facility] MEDICARE REPLACEMENT [id number] [facility] MEDICARE [facility]PLACEMENT [facility] MEDICARE REPLACEMENT [facility] CARE MEDICARE REPLACEMENT [facility] MEDICARE REPLACEMENT , [facility] , [id number] [place] [address] Care Teams Furniture Removalist Relationship Specialty Start Date End Date Jayde Quiroz MD [address] [place] [address] PCP - General Internal Medicine 01/07/22 Additional Source Comments The information contained in this document represents components of the legal health record. It is not the complete legal health record.[facility]
== END 2025-09-16 12:10 | disposition home or self-care (01) ==
LOC: HO.HPHYS 11:48
PROVIDERS: PCP Physician Assistant; Visit Provider Physician Assistant
DX: M79.10 Myalgia, unspecified site (principal)
CPT/HCPCS: 20552

== ENCOUNTER → 2025-09-16 11:47 | Outpatient (BNVA) | payer OTHER, SELFPAY | PROVIDERS: PCP Physician Assistant; Visit Provider Physician Assistant | DX: M79.18 Myalgia, other site (principal) | CPT/HCPCS: 20552; J2003 ==